=== PATIENT | male | born 1995 | race Two or more races ===

== ENCOUNTER 2024-09-03 13:39 | Emergency (ER) | payer OTHER ==
[~2024-09-03] VITALS: Ht 177.8 cm; Wt 88.5 kg
[2024-09-03] MEDS ORDERED: ORPHENADRINE CITRATE 30 MG/ML AMPUL IM ONE (17:00)
[2024-09-03] MEDS ORDERED: KETOROLAC TROMETHAMINE 60 MG VIAL IM ONE (17:00)
[2024-09-03] MEDS ORDERED: NORFLEX100MG PO (17:33)
[2024-09-03] MEDS ORDERED: DICLOFENAC SODI50 MG PO (17:33)
== END 2024-09-03 20:33 ==
LOC: ER 13:41
DX: M54.50 Low back pain, unspecified (principal)